=== PATIENT | female | born 1975 | race Caucasian/White ===

== ENCOUNTER 2025-01-16 09:22 | Outpatient (CLI) | payer BC ==
[2025-01-16 10:18] LABS: CHOL/HDL RATIO 3.1 (0.00-4.99); CREATININE 0.65 MG/DL (0.40-0.90); LDL CHOLESTEROL 126 MG/DL (50-100); TOTAL CARBON DIOXIDE 29.2 MMOL/L (24-32); eGFR > 90 ML/MIN
[2025-01-17 08:12] LABS: THIIODOTHRONINE, FREE, SERUM 3.0 pg/mL (2.0-4.4)
[2025-01-17 09:18] LABS: ANTINUCLEAR ANTIBODIES Negative (Negative)
== END 2025-01-16 23:59 | disposition home or self-care (01) ==
LOC: LAB 09:22
PROVIDERS: ATTEND Family Medicine
DX: Z13.1 Encounter for screening for diabetes mellitus (principal); E01.0 Iodine-deficiency related diffuse (endemic) goiter; Z13.220 Encounter for screening for lipoid disorders; M25.50 Pain in unspecified joint
CPT/HCPCS: 36415; 80053; 80061; 84439; 84443; 84481; 84550; 86038; 86200; 86431

== ENCOUNTER 2025-02-06 08:37 | Day surgery (SDC) | payer BC ==
--- NOTE | 2025-01-30 16:06 | ELECTROCARDIOGRAPH REPORT ---
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 AISHWARYA Richard Measurements Intervals [place] Rate: 53 P: 81 PA: 170 QRS: 83 QRSD: 99 T: 70 QT: 451 QTc: 424 Interpretive Statements Sinus bradycardia Right atrial enlargement Electronically Signed On 01-30-2025 17:37:[address] AISHWARYA Richard Please click the below link to view image of tracing.
[2025-01-30 16:10] LABS: LEUKOCYTE ESTERASE ,URINE NEGATIVE (Neg); NITRITES, URINE NEGATIVE (Neg); OCCULT BLOOD,URINE NEGATIVE (Neg)
[2025-01-30 16:14] LABS: MEAN PLATELET VOLUME 9.6 FL (7.4-10.4); PRE OP HEMATOCRIT 40.2 % (35.0-45.0); PRE OP HEMOGLOBIN 13.5 g/dL (12.0-16.0); PRE OP PLATELET COUNT 301 X10'3 (140-440); PRE OP WHITE BLOOD COUNT 8.8 10'3 (4.8-10.8); RED CELL DISTRIBUTION WIDTH 12.5 % (11.5-14.5)
[2025-01-30 16:17] LABS: UA COLLECTION TYPE CLN CATCH MIDSTREAM
[2025-01-30 16:27] LABS: HCG SERUM QL NEGATIVE
--- NOTE | 2025-01-30 16:30 | RADIOLOGY REPORT ---
CHEST RADIOGRAPH Indication: PREOP Technique: Frontal and lateral view of the chest was obtained Comparison: None FINDINGS: Lines and Tubes: None Lungs: Clear Pleura: No effusion. No pneumothorax. Cardiomediastinal contours: Unremarkable Bones: Unremarkable IMPRESSION: No evidence of acute disease.
[2025-01-30 16:32] LABS: CREATININE 0.78 MG/DL (0.40-0.90); PRE OP ALT 37 U/L (30-65); PRE OP ANION GAP 2 (8-16); PRE OP AST 27 U/L (10-37); PRE OP BILIRUB, TOTAL 0.3 MG/DL (0.0-1.0); PRE OP GLUCOSE 94 MG/DL (70-104); PRE OP POTASSIUM 3.8 MMOL/L (3.4-5.1); PRE OP SODIUM 141 MMOL/L (135-145); TOTAL CARBON DIOXIDE 33.0 MMOL/L (24-32); eGFR 79 ML/MIN
[2025-02-06] VITALS (21 sets, daily range): BP systolic 107–133; BP diastolic 62–81; PULSE 51–75; RESP 12–24; TEMP 96.6–97.7; O2SAT 94–100
[~2025-02-06] VITALS: Ht 165.1 cm; Wt 71.3 kg
[2025-02-06] MEDS: ceFOXitin 2GM-NS 100mL ADDvant 100 ML IV ONE (05:30)
[~2025-02-06 08:37] MED LIST: ALBU10.7 INH; ASCO-134 PO; BUPIVAcaine 2.5mg/ml inj 50ml vial (contains preservative) ONE; BUPIVAcaine/PF 2.5mg/ml (0.25%) 10ml vial ONE; MAGN400C PO; RHODIOLA PO; TURMERIC PO; ZINC220T3 PO; vasoPRESSIN 20 units/ml inj. ONE
[2025-02-06] MEDS: ringers solution, lacted 1,000 ML IV SCH ×3 (09:24→12:35)
[2025-02-06] MEDS: midazolam 1 mg/ML 2ml injection ONE (10:12)
[2025-02-06] MEDS ORDERED: fentaNYL /PF 50mcg/ml 5ml ampule ONE (10:28)
[2025-02-06] MEDS ORDERED: dexamethasone sod phosphate 4mg/ml inj. ONE (11:00)
[2025-02-06] MEDS ORDERED: propofol inj 20 ML IV ONE (11:00)
[2025-02-06] MEDS ORDERED: rocuronium 10mg/ml inj IV ONE (11:00)
[2025-02-06] MEDS ORDERED: acetaminophen 1,000mg/100ml IV 100 ML IV PRN (11:30)
[2025-02-06] MEDS ORDERED: morphine 4 MG/ML inj SYRINge IV PRN (11:30)
[2025-02-06] MEDS ORDERED: HYDROmorphone/PF 0.2 MG/ML SYRINGE IV PRN ×2 (11:30)
[2025-02-06] MEDS ORDERED: labetalol 20mg/4ml (5mg/ml) syringe IV PRN (11:30)
[2025-02-06] MEDS ORDERED: hydrALAZINE 20mg/ml inj. IV PRN (11:30)
[2025-02-06] MEDS ORDERED: acetaminophen 1,000mg/100ml IV 100 ML IV ONE (12:04)
[2025-02-06] MEDS ORDERED: ondansetron/PF 4mg/2ml inj ONE (12:22)
[2025-02-06] MEDS ORDERED: magnesium hydroxide 30ml (MOM) UD suspension PO PRN (12:35)
[2025-02-06] MEDS ORDERED: HYDROcodone/acetaminophen 10/325mg tab PO PRN (12:35)
[2025-02-06] MEDS ORDERED: normal saline 500ml IV soln 500 ML IV PRN (12:35)
[2025-02-06] MEDS: ketorolac trometh 30MG/ML vial 30 MG/ML VIAL IV PRN (13:04)
[2025-02-06] MEDS: ondansetron/PF 4mg/2ml inj IV PRN ×2 (13:04→21:29)
--- NOTE | 2025-02-06 13:42 | OPERATIVE REPORT ---
DATE OF SURGERY: 02/06/2025 DICTATING PHYSICIAN: Isidro Edward MD PREOPERATIVE DIAGNOSES: Chronic menometrorrhagia and dysmenorrhea. POSTOPERATIVE DIAGNOSES: Chronic menometrorrhagia and dysmenorrhea. SURGEON: Isidro Edward MD COVERER: Bobbi Dhaliwal, IVON, MSN, medical library assistant ANESTHESIOLOGIST: Dr Pederson. ANESTHESIA: General. PROCEDURES: Laparoscopic-assisted vaginal hysterectomy with bilateral salpingectomy and preservation of the ovaries. FINDINGS: Grossly normal-appearing tubes and ovaries bilaterally. No evidence of endometriosis. ESTIMATED BLOOD LOSS: 50 mL. COMPLICATIONS: None. INDICATIONS: The patient is a 49-year-old female with chronic worsening menometrorrhagia and dysmenorrhea, unresponsive to conservative management, including the use of a progesterone IUD. The patient has had permanent sterilization and no longer desired fertility, hence desired the above procedures. TECHNIQUE: The patient was taken to the OR where general anesthesia was found to be adequate. She was placed in a dorsal lithotomy position. She was prepped and draped in the usual sterile fashion. A surgical pause was performed. The cervix was infiltrated with a dilute solution of a suppressant. A TONYA manipulator was placed transcervically and secured in the usual fashion. A transurethral catheter was placed. We changed gloves. A Veress needle was introduced through the umbilicus and the abdomen was insufflated with CO2 gas to 15 mmHg. The Veress needle was removed and a 5 mm trocar was placed through the umbilicus. An 8 mm trocar was placed at the left lower quadrant followed by a second 5 mm port at the right lower quadrant. Pelvic organs were inspected with findings as noted above. In view of grossly normal-appearing ovaries and per the patient's desires, we proceeded to hysterectomy with salpingectomy and preservation of the ovaries. The right fallopian tube was tented up at the fimbria and coagulated and divided along the mesosalpinx with the NCL device. The utero-ovarian ligament was then similarly coagulated and divided. The right round ligament was identified and coagulated and divided with the NCL device. The incision was then extended anteriorly along the lateral aspect of the uterus to the level of the cardinal ligaments. The uterine vessels were then identified and coagulated and divided with the NCL device. The entire procedure was then duplicated on the left aspect. The vesicouterine peritoneum was then sequentially transversely coagulated and divided with the NCL device in its entirety. The bladder was dissected up bluntly. Anterior and posterior colpotomies were then performed sequentially with application of monopolar coagulating current directly over the cup of the TONYA manipulator. The CO2 gas was allowed to egress and we proceeded to the vaginal aspect of the surgery. The TONYA manipulator was removed. The cervix was placed under traction and the uterosacral ligaments were sequentially and bilaterally clamped, cut, and suture ligated with #0 Vicryl sutures. In this fashion, the specimen was completely amputated and extracted transvaginally without difficulty. The vaginal cuff was then sequentially closed with multiple [id number] of 0 Vicryl sutures. Excellent hemostasis was noted. We changed gloves again and proceeded to the final laparoscopic inspection. Again, the abdomen was insufflated with CO2 gas to 15 mmHg. Hemostasis was confirmed throughout the pelvis and the procedure was terminated. A solution of Marcaine and saline was inferiorly sprayed over the dome of the liver. The CO2 gas was allowed to egress, no bleeding was noted. All trocars were removed. The skin incisions were then sequentially closed subcuticularly with 4-0 Vicryl sutures and sealed off with Dermabond. Sponge, lap, instrument, and needle counts reported correct. COMPLICATIONS: None. PATHOLOGY: Uterus with attached fallopian tubes. DISPOSITION: The patient was taken to the recovery room in stable condition. Isidro Edward MD TID: [id number] RECEIPT: [id number] MICHAEL MARTINEZ
[2025-02-06] MEDS: HYDROcodone/acetaminophen 10/325mg tab PO PRN (14:33)
[2025-02-06] MEDS: metoclopramide 5 mg/ml inj IV PRN (16:31)
[2025-02-06] MEDS: HYDROmorph/NS 0.2 mg/ml PCA 100 ML IV SCH (18:03)
[2025-02-06] MEDS: docusate sod 100mg capsule PO SCH (20:56)
[2025-02-07 02:00] VITALS: BP 92/54; PULSE 51; RESP 14; TEMP 98.1; O2SAT 97
[2025-02-07 06:00] VITALS: BP 93/52; PULSE 55; RESP 14; TEMP 98.4; O2SAT 97
[2025-02-07 06:06] LABS: CREATININE 0.65 MG/DL (0.40-0.90); TOTAL CARBON DIOXIDE 27.4 MMOL/L (24-32); eCRCL 96 ML/MIN; eGFR > 90 ML/MIN
[2025-02-07 06:08] LABS: MEAN PLATELET VOLUME 9.8 FL (7.4-10.4); RED CELL DISTRIBUTION WIDTH 12.5 % (11.5-14.5)
[2025-02-07 10:00] VITALS: BP 106/63; PULSE 55; RESP 18; TEMP 98.6; O2SAT 98
[2025-02-07] MEDS: PCA WASTE DOCUMENTATION 1 MG ML MC SCH (15:47)
--- NOTE | 2025-02-07 16:10 | DISCHARGE SUMMARY ---
DATE OF DISCHARGE: 02/07/2025 DICTATING PHYSICIAN: Isidro Edward MD ADMISSION DIAGNOSIS: The patient was admitted for surgical management of chronic menometrorrhagia and dysmenorrhea. DISCHARGE DIAGNOSES: Status post laparoscopic-assisted vaginal hysterectomy and bilateral salpingectomy. HOSPITAL COURSE: On 02/06/2025, the patient was admitted for surgical management of her abnormal uterine bleeding and dysmenorrhea. She was taken to the OR where the above procedures were performed without complications. The patient's postoperative course has been also uncomplicated. She has remained afebrile throughout her hospital stay. The patient is tolerating a regular diet and ambulating without difficulty. She has voided after removal of the catheter without difficulty. PHYSICAL EXAMINATION: GENERAL: The patient is alert and oriented and in no acute distress. VITAL SIGNS: Within normal limits. She is afebrile. ABDOMEN: Soft, mildly distended, which is appropriate for postop day 1. The incisions at the abdominal area appear intact. PELVIC: A pelvic exam was deferred. LABORATORY DATA: Her hemoglobin is 11.5 and her chemistry panel is appropriate for a postop day 1 patient. ASSESSMENT: Stable postop day 1. The patient is deemed ready for discharge home. PLAN: Discharge the patient home today. FOLLOWUP: Is to follow up in my office in 2 weeks. Duration of disability is 6 weeks. DISCHARGE MEDICATIONS: Include pain medications and a stool softener. The patient has also been instructed to resume her outpatient medications. DIET: Regular. ACTIVITY: She is to observe 6 weeks of pelvic rest and not to lift objects over 15 pounds. DISPOSITION: The patient is being discharged home in improved condition. Isidro Edward MD TID: [id number] RECEIPT: [id number] FEDERICO/KATIE
== END 2025-02-07 15:30 | disposition home or self-care (01) ==
LOC: OR 08:37 → EEVIPCON 10:15 → SUR 3N 12:33 → OR 02-07 15:30
PROVIDERS: ATTEND Obstetrics & Gynecology Obstetrics
DX: N92.1 Excessive and frequent menstruation with irregular cycle (principal); N94.6 Dysmenorrhea, unspecified; R10.11 Right upper quadrant pain; J45.909 Unspecified asthma, uncomplicated; Z98.890 Other specified postprocedural states; Z88.1 Allergy status to other antibiotic agents
CPT/HCPCS: 36415; 58552; 71046; 80048; 80053; 81003; 82948; 84703; 85025; 93005; J0131; J0694; J1100; J1171; J1885; J2250; J2270; J2405; J2704; J2765; J3010; J3490; J7030; J7040; J7120; Z7506; Z7508; Z7512; A4314; A4615; A4618; A7000; G0378